=== PATIENT | female | born 1970 ===

== ENCOUNTER 2016-12-03 03:17 | Emergency (ER) | payer OTHER ==
[2016-12-03 03:33] VITALS: BP 107/75; TEMP 98.2
[2016-12-03] MEDS ORDERED: Sodium Chloride 0.9% 1,000 ML IV STA (03:38)
[2016-12-03] MEDS ORDERED: Belladonna-Phenobarbital PO STA (03:38)
[2016-12-03 04:02] LABS: BASO # 0.1 K/uL (0.0-0.2); BASO % 0.6 % (0.0-2.0); EOS # 0.4 K/uL (0.0-0.7); EOS % 4.6 % (0.0-4.0); HEMATOCRIT 49.7 % (34.0-47.0); LYMPH # 1.4 K/uL (1.0-4.3); LYMPH % 15.8 % (20.0-40.0); MEAN CELL VOLUME 89.7 fL (81.0-99.0); MEAN CORPUSCULAR HEMOGLOBIN 29.7 pg (27.0-31.0); MEAN CORPUSCULAR HGB CONC 33.1 g/dL (33.0-37.0); MEAN PLATELET VOLUME 8.3 fL (7.2-11.7); MONO # 0.9 K/uL (0.0-0.8); MONO % 10.1 % (0.0-10.0); NRBC % 0.1 % (0.0-2.0); RED CELL DISTRIBUTION WIDTH 13.5 % (11.5-14.5); WHITE BLOOD COUNT 8.7 K/uL (4.8-10.8)
[2016-12-03] MEDS ORDERED: Belladonna-Phenobarbital ONE ×2 (04:05→04:09)
[2016-12-03] MEDS ORDERED: Sodium Chloride 0.9% 0 ML ONE (04:05)
[2016-12-03] MEDS ORDERED: Sodium Chloride 0.9% 1,000 ML ONE (04:09)
[2016-12-03 04:11] LABS: CHLORIDE 99 mmol/L (98-107)
[2016-12-03 04:12] LABS: POTASSIUM 3.1 mmol/L (3.6-5.2); SODIUM 139 mmol/L (132-148)
[2016-12-03 04:14] LABS: ALKALINE PHOSPHATASE 118 U/L (38-126); ALT/SGPT 43 U/L (9-52); AST/SGOT 40 U/L (14-36); BILIRUBIN,TOTAL 0.4 mg/dL (0.2-1.3); BLOOD UREA NITROGEN 12 mg/dL (7-17); CARBON DIOXIDE 22 mmol/L (22-30); GFR AFRICAN-AMERICAN > 60; GLUCOSE,RANDOM 110 mg/dL (65-105); TOTAL PROTEIN 8.4 g/dL (6.3-8.3)
[2016-12-03 04:15] LABS: CALCIUM 8.3 mg/dl (8.6-10.4)
--- NOTE | 2016-12-03 04:40 | C.PDOC ---
History Of Present Illness Patient is a 46 year old female who presents to the ER with a complaint of having watery diarrhea for the past 3 days. Patient states she took peptobismol and immodium and they did not work for her. Patient reports that her daughter has similar symptoms. Denies any abdominal pain, vomiting, or fever. Time Seen by Provider: 12/03/16 03:34 Chief Complaint (Nursing): GI Problem History Per: Patient History/Exam Limitations: no limitations Onset/Duration Of Symptoms: Days (3) Current Symptoms Are (Timing): Still Present Associated Symptoms: Diarrhea (Watery). denies: Fever, Chills, Nausea, Vomiting Past Medical History Reviewed: Historical Data, Nursing Documentation, Vital Signs Vital Signs: Last Vital Signs Temp 98.2 F 12/03/16 03:30 Pulse 98 H 12/03/16 03:30 Resp 16 12/03/16 03:30 BP 107/75 12/03/16 03:30 Pulse Ox 98 12/03/16 06:13 Family History: States: Unknown Family Hx - Social History Hx Alcohol Use: No Hx Substance Use: No - Immunization History Hx Tetanus Toxoid Vaccination: No Hx Influenza Vaccination: No Hx Pneumococcal Vaccination: No Review Of Systems Except As Marked, All Systems Reviewed And Found Negative. Constitutional: Negative for: Fever, Chills Cardiovascular: Negative for: Palpitations Respiratory: Negative for: Cough, Shortness of Breath Gastrointestinal: Positive for: Diarrhea (Watery). Negative for: Nausea, Vomiting, Abdominal Pain Physical Exam - Physical Exam Appears: Well, Non-toxic Skin: Normal Color, Warm, Dry Oral Mucosa: Moist Chest: Symmetrical Cardiovascular: Rhythm Regular Respiratory: Normal Breath Sounds, No Rales, No Rhonchi, No Wheezing Gastrointestinal/Abdominal: Soft, No Tenderness Neurological/Psych: Oriented x3, Normal Speech, Normal Cognition ED Course And Treatment - Laboratory Results Result Diagrams: 12/03/16 03:59 12/03/16 03:59 O2 Sat by Pulse Oximetry: 98 (Room air) Pulse Ox Interpretation: Normal Progress Note: Protonix PO, IV fluids, and PO administered. Labs, HCG urine test and urinalysis ordered. Hypokalemia was noticed and patient was treated with KCL po. On re-evaluation patient feels better and is ready to be d /c home with PMD follow up. Disposition - Disposition Disposition: HOME/ ROUTINE Disposition Time: 06:11 Condition: IMPROVED Additional Instructions: Follow up with PMD within 1-2 days. Return to ED if feel worse. Prescriptions: Dicyclomine [Bentyl] 20 mg PO TID #30 tab Instructions: Gastroenteritis (ED) - Clinical Impression Clinical Impression: Gastroenteritis, Hypokalemia - Scribe Statement The provider has reviewed the documentation as recorded by the Scribconstantin Whelan All medical record entries made by the Bettyibconstantin were at my direction and personally dictated by me. I have reviewed the chart and agree that the record accurately reflects my personal performance of the history, physical exam, medical decision making, and the department course for this patient. I have also personally directed, reviewed, and agree with the discharge instructions and disposition.
[2016-12-03] MEDS ORDERED: Potassium Chloride 20 mEq ER Tab PO STA (05:42)
[2016-12-03] MEDS ORDERED: Potassium Chloride 20 mEq ER Tab PO ONE (06:16)
[2016-12-03 06:29] VITALS: PULSE 81; RESP 20; O2SAT 100
== END 2016-12-03 06:25 | disposition home or self-care (01) ==
LOC: C.ER 03:17
DX: K52.9 Noninfective gastroenteritis and colitis, unspecified (principal); E87.6 Hypokalemia
CPT/HCPCS: 80053; 83690; 85025; 96374; 99283; C9113; J7040